=== PATIENT | female | born 1935 | race Caucasian/White ===

== ENCOUNTER 2017-01-30 14:48 | Emergency (ER) | payer MEDICARE, BC ==
[2017-01-30 16:47] VITALS: BP 136/85
--- NOTE | 2017-01-31 03:38 | ER ---
DATE SEEN: 01/30/2017 TIME SEEN: The patient was seen at 1516 hours. HISTORY OF PRESENT ILLNESS: This 81-year-old woman comes in with a history of being 6 weeks status post 12/17/2016 left hip fracture repair with hip nailing. She was [facility] just [facility] the [facility] on L[facility]ab. She did reasonably well on Lortab, but then she was put on Tylenol No.3 and that is "not working." When she sits in a chair, pain goes from 6/10 down to 2/10. PAST MEDICAL HISTORY: Significant for obesity and chronic obstructive lung disease and per her daughter, very low tolerance for pain. She is currently living in [facility] and she moved there yesterday and was involved in a lot of activity yesterday. The daughter feels perhaps the latter plus her deconditioning is the etiology for her increased pain. The patient has not fallen. No fever. Past medical history is significant for urosepsis, renal stone that had passed, and COPD. She is a chronic smoker for many years. Chronic obstructive lung disease, Crohn disease, heart disease, coronary artery disease, urinary incontinence, essential hypertension, and colitis. CURRENT MEDICATIONS: 1. Zoloft. 2. Potassium chloride 20 mEq b.i.d. 3. MiraLax. 4. Omeprazole 40 mg daily. 5. Metoprolol succinate 50 mg daily. 6. Mesalamine for colitis/Crohn (800 mg b.i.d.). 7. Isosorbide 30 mg daily. 8. Hydrochlorothiazide 12.5 mg daily. 9. Lasix 20 mg daily and then 20 mg p.r.n. 10.It is indeterminate if she is still on enoxaparin, but I do not think she is. Nurses are unaware of that either. 11.Vitamin D with calcium. 12.Albuterol. 13.Tylenol No.3. PHYSICAL EXAMINATION: VITAL SIGNS: Blood pressure 136/85, heart rate 54, respirations 18, oxygen saturation 98%, and temperature is 36.7 degrees. HEENT: PERRLA intact. GENERAL: The patient is attended by her daughter. Daughter is very lee and open about her mother's disposition to overuse pain medicines and "she has a very low pain threshold. Has always had problems with pain." NECK: No bruits in neck. LUNGS: Clear to auscultation without rales or rhonchi. ABDOMEN: Soft. Markedly increased abdominal girth. No paraspinal discomfort. EXTREMITIES: Lower extremities, left hip wound is clean. Mild edema. No tenderness of vascular structures. The patient can get up and stand. Right hip is without abnormality. Can move her leg more readily and has more strength. Deep tendon reflexes are all hypoactive. Cranial nerves 2 through 12 intact. Decreased hearing. No pronator drift. No tremor. LABORATORY DATA: X-ray reveals slight halo around the orthopedic nail. Reflects some osteolysis may have occurred while placing this. There is no displacement. There is a slight collapse of the nail, which is appropriately acceptable and the nail is in place. No evidence for a new fracture. ASSESSMENT: The patient has low pain threshold, most likely her pain has increased with being more active yesterday. Her daughter notes she "does not do well with pain." That may be the reason why the patient has such a prolonged need for postoperative pain. Today Brielle would like a stronger pain medicine. I told her this is a problem because she has already been on a longer than normal 6 weeks of post op high dose pain medicine and she will need to "get off" the pain medicine. To oblige the patient I restarted oxycodone 1 tablet 3 times a day as needed for only 5 days, and then she is to go off the oxycodone altogether. She needs to contact her doctor wean her off the narcotics. The more inactive she is, the greater risk she has for complications. The more active she is, the more pain she will have. But more pain means she is doing something to expedite her recovery. Recovery will not happen sitting in the chair. She found that somewhat a surprising admonition and instruction from me, but her daughter was very pleased that I should be proactive in encouraging her mother's activity and exercise. I told her the outcome of her inactivity means further prison dependence and loss of her independence. She needs to work hard on regaining that treasured independence. /[id number] SHREYAS/PILO VILLEGAS
--- NOTE | 2017-02-01 10:51 | CR ---
INDICATION: Status post ORIF left hip approximately 6 weeks with more pain, question prosthetic loosening, no history of trauma. LEFT HIP: Frontal and two lateral views of the left hip were obtained 2016 and compared with fluoroscopic C-arm spot images from 12/17/2016 and revealed mild impaction of the fracture fragments, compared with the previous study. There appears to be some lucency about the intertrochanteric portion of the hip pinning device. Lateral shift of the hip pinning device is noted, compatible with impaction of the fracture fragments. Periosteal new bone formation is suggested, compatible with interval progress in healing in general. The decrease in density is seen mostly along the lateral aspect of the intertrochanteric portion. Depending upon clinical necessity, 3-phase nuclear bone imaging could be obtained for further evaluation of this finding. Copy of report to Dr. Nabeel David and Dr. Adama Moctezuma on 02/01/2017. [facility]
--- NOTE | 2017-02-24 21:39 | ER ---
DATE SEEN: 01/30/2017 DIAGNOSES: 1. 6 weeks status post left hip fracture, pain, not responding to Tylenol No. 3. 2. Urosepsis. 3. Renal lithiasis, passed. 4. Chronic obstructive pulmonary disease. 5. Crohn's disease. 6. Coronary artery disease. 7. Urinary incontinence. 8. Essential hypertension. 9. Colitis. /[id number] SHREYAS/PILO
== END 2017-01-30 16:50 | disposition home or self-care (01) ==
LOC: EEVIPCON 14:48 → FB.ED 14:48
DX: G89.18 Other acute postprocedural pain (principal); S72.142D Displaced intertrochanteric fracture of left femur, subsequent encounter for closed fracture with routine healing; I25.10 Atherosclerotic heart disease of native coronary artery without angina pectoris; I10 Essential (primary) hypertension; K52.9 Noninfective gastroenteritis and colitis, unspecified; R32 Unspecified urinary incontinence; K50.90 Crohn's disease, unspecified, without complications; J44.9 Chronic obstructive pulmonary disease, unspecified; E66.9 Obesity, unspecified
CPT/HCPCS: 73502-LT; 99283

== ENCOUNTER 2018-08-14 12:46 | Emergency (ER) | payer MEDICARE, BC ==
[2018-08-14 13:07] VITALS: BP 118/37
--- NOTE | 2018-08-14 13:57 | EDM.PDOC ---
ED HPI GENERAL MEDICAL PROBLEM - General Chief Complaint: ENT Problem Stated Complaint: LT EYE Time Seen by Provider: 08/14/18 13:00 Source of Information: Reports: Patient History Limitations: Reports: No Limitations - History of Present Illness INITIAL COMMENTS - FREE TEXT/NARRATIVE: This pleasant 83-year-old woman who plans to move from her apartment tomorrow, has spontaneous onset of left eye scleral hemorrhage onse this morning, as noted the hemorrhage when she woke up. She notes a slight decrease in vision or left eye. She has bilateral cataracts and no previous cataract surgery. No history of falls, atrial fibrillation, or use of anticoagulants or NOAC's or DOAC's. She has a past medical history COPD chronic kidney disease dyslipidemia obesity 35.9 BMI Crohn's/colitis treated with mesalamine, coronary artery disease, incontinence, hypertension, left hip fracture, arthritis treated with meloxicam, and she is on potassium supplements. 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: Other (see below) (none) - Related Data Allergies Allergy/AdvReac Type Severity Reaction Status Date / Time No Known Allergies Allergy Verified 08/14/18 13:07 Home Meds: Home Meds Furosemide [Lasix] 20 mg PO DAILY 12/12/13 [History] Mesalamine [Asacol Hd] 800 mg PO BID 12/12/13 [History] Omeprazole 40 mg PO DAILY@0600 12/12/13 [History] Potassium Chloride [Klor-Con M20] 20 meq PO BID@08,12 12/25/14 [History] Isosorbide Mononitrate [Imdur] 30 mg PO DAILY #20 tab.er 01/31/16 [Rx] Albuterol [Ventolin HFA] 2 puff IH Q4H PRN 12/21/16 [History] Polyethylene Glycol 3350 [MiraLAX] 17 gm PO DAILY PRN 12/21/16 [History] Sertraline [Zoloft] 50 mg PO DAILY 12/21/16 [History] Acetaminophen [Tylenol Extra Strength] 500 mg PO QID PRN 01/17/18 [History] Acetaminophen [Tylenol] 650 mg PO Q4H PRN 01/17/18 [History] Calcium Carbonate/Vitamin D3 [Calcium 500-Vit D3 200 Tablet] 1 tab PO DAILY 04/01 [History] Cholecalciferol (Vitamin D3) [Vitamin D3] 1,000 unit PO DAILY 01/17/18 [History] Loperamide [Imodium] 2 mg PO ASDIRECTED PRN 01/17/18 [History] Meloxicam 7.5 mg PO DAILY 01/17/18 [History] Multivitamin [One Daily] 1 tab PO DAILY 01/17/18 [History] Sennosides/Docusate Sodium [Senna S Tablet] 1 tab PO BID PRN 01/17/18 [History] Metoprolol Succinate 25 mg PO DAILY 08/14/18 [History] Umeclidinium Brm/Vilanterol Tr [Anoro Ellipta 62.5-25 Mcg INH] 1 puff INH DAILY 08/14/18 [History] Past Medical History - Past Health History Medical/Surgical History: Denies Medical/Surgical History HEENT History: Reports: None Cardiovascular History: Reports: Heart Failure, SOB on Exertion Respiratory History: Reports: COPD, SOB Gastrointestinal History: Reports: Colon Polyp, Irritable Bowel Syndrome Genitourinary History: Reports: Urinary Incontinence 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: Musculoskeletal History: Reports: Fracture, Other (See Below) Other Musculoskeletal History: left hip pinned dec 17, 2016 Neurological History: Reports: None Psychiatric History: Reports: None Endocrine/Metabolic History: Reports: Obesity/BMI 30+ Hematologic History: Reports: None Immunologic History: Reports: None Oncologic (Cancer) History: Reports: None Dermatologic History: Reports: None - Infectious Disease History Infectious Disease History: Reports: Chicken Pox, Measles - Past Surgical History Head Surgeries/Procedures: Reports: None HEENT Surgical History: Reports: None Respiratory Surgical History: Reports: None Female Surgical History: Reports: Other (See Below) Endocrine Surgical History: Reports: None Neurological Surgical History: Reports: None Musculoskeletal Surgical History: Reports: ORIF, Other (See Below) Oncologic Surgical History: Reports: None Dermatological Surgical History: Reports: None Social & Family History - Family History Family Medical History: Noncontributory HEENT: Reports: Glaucoma Cardiac: Reports: None Respiratory: Reports: None GI: Reports: None : Reports: None OBGYN: Reports: Musculoskeletal: Reports: None Neurological: Reports: CVA Psychiatric: Reports: None Endocrine/Metabolic: Reports: None Hematologic: Reports: None Immunologic: Reports: None Dermatologic: Reports: None Oncologic: Reports: Lung - Tobacco Use Smoking Status *Q: Never Smoker - Caffeine Use Caffeine Use: Reports: Coffee, Soda - Recreational Drug Use Recreational Drug Use: No ED ROS ENT - Review of Systems Review Of Systems: See Below Constitutional: Reports: No Symptoms HEENT: Reports: Vision Change Respiratory: Reports: No Symptoms Cardiovascular: Reports: No Symptoms Endocrine: Reports: No Symptoms GI/Abdominal: Reports: Other (CROHN'S) : Reports: No Symptoms Musculoskeletal: Reports: Other (Thrombus from Crohn's disease meloxicam the latter could affect her platelets and contributed to the sub-conjunctival/ scleral hemorrhage in her left eye) Skin: Reports: No Symptoms Neurological: Reports: No Symptoms Psychiatric: Reports: No Symptoms Hematologic/Lymphatic: Reports: No Symptoms Immunologic: Reports: No Symptoms ED EXAM, ENT - Physical Exam Exam: See Below Text/Narrative:: This pleasant overweight woman who wears glasses denies any change in her right vision but notes a slight decreased vision in her left eye. Is notable scleral hemorrhage that involves mild chemosis (swEllowing of the sclera with scleral edema at the limbus junction) of the sclera. She denies eye pain. Exam Limited By: No Limitations General Appearance: Alert, WD/WN, No Apparent Distress Eye Exam: Left Eye: Other (Scleral hemorrhage as noted entire sclera), Bilateral Eye: Normal Fundi Ears: Normal External Exam, Normal Canal, Hearing Grossly Normal, Normal TMs Nose: Normal Inspection, Normal Mucousa Mouth/Throat: Normal Inspection, Normal Gums, Normal Lips, Normal Oropharynx, Normal Teeth Head: Atraumatic, Normocephalic Neck: Normal Inspection, Supple, Non-Tender Respiratory/Chest: No Respiratory Distress, Lungs Clear, Other (She is using a respirator support system for her COPD with automatic frequency respirations on demand delivered her axillary respirator ) Cardiovascular: Other (Soft less than 1/6 murmur heard at the left and right parasternal second intercostal space. This murmur radiates to her neck. The murmur reflects out aortic stenosis secondary to aortic valve sclerosis. There are no holosystolic murmurs.) (Female) Exam: Deferred Rectal (Female) Exam: Deferred Extremities: Normal Inspection, Non-Tender, Pedal Edema Neurological: Alert, Oriented, CN II-XII Intact, Normal Cognition, No Motor/ Sensory Deficits Psychiatric: Normal Affect, Normal Mood Skin: Warm, Dry, Other ( scattered benign senile purpura) Lymphatic: No Adenopathy Course - Vital Signs Last Recorded V/S: Last Vital Signs Temp 36.7 C 08/14/18 12:50 Pulse 52 L 08/14/18 12:50 Resp 18 08/14/18 12:50 BP 118/37 L 08/14/18 12:50 Pulse Ox 96 08/14/18 12:50 Departure - Departure Time of Disposition: 13:10 Disposition: Home, Self-Care 01 Clinical Impression: Scleral hemorrhage of left eye - Discharge Information *PRESCRIPTION DRUG MONITORING PROGRAM REVIEWED*: Not Applicable *COPY OF PRESCRIPTION DRUG MONITORING REPORT IN PATIENT COLIN: Not Applicable Instructions: Subconjunctival Hemorrhage Referrals: Joy Verdugo [employer] [Primary Care Provider] - Forms: ED Department Discharge Additional Instructions: you have a scleral hemmorhage coupled with a bulbar subconjuctival hemorrhage [employer] she states that this will resolve spontaneously within several days to week. There is no treatment for this hemorrhage. I would avoid heavy lifting or excessive exertion. You are not on anticoagulants so there is no need to change any medication that you're using presently. Follow-up your doctor as needed in the next 1-3 weeks. You also have bilateral cataracts which affects you vision. The cataract on her left eye is more is larger and thicker than the cataract on your right eye. This probably accounts for 95% of the difference in the vision between each eye. The scleral hemorrhage does not affect the line of eyesight/ vision in either eye.
== END 2018-08-14 13:59 | disposition home or self-care (01) ==
LOC: FB.ED 12:46
DX: H15.89 Other disorders of sclera (principal); I13.0 Hypertensive heart and chronic kidney disease with heart failure and stage 1 through stage 4 chronic kidney disease, or unspecified chronic kidney disease; I50.9 Heart failure, unspecified; N18.9 Chronic kidney disease, unspecified; J44.9 Chronic obstructive pulmonary disease, unspecified; E66.9 Obesity, unspecified; Z79.899 Other long term (current) drug therapy; Z68.35 Body mass index [BMI] 35.0-35.9, adult
CPT/HCPCS: 99282